=== PATIENT | male | born 1975 | race Caucasian/White ===

== ENCOUNTER 2017-03-29 09:01 | Emergency (ER) | payer OTHER ==
--- NOTE | 2017-03-29 18:01 | EDM.PDOC ---
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 Onset Date: 03/28/17 Location: Reports: Face (left ear) Left Ear Pain Score (Numeric/FACES): 1 Past Medical History - Past Surgical History HEENT Surgical History: Reports: Adenoidectomy, Tonsillectomy Musculoskeletal Surgical History: Reports: Other (See Below) Other Musculoskeletal Surgeries/Procedures:: ACL R Social & Family History - Tobacco Use Smoking Status *Q: Never Smoker - Recreational Drug Use Recreational Drug Use: No ED ROS ENT - Review of Systems Review Of Systems: See Below HEENT: Reports: Other (foreign body in L ear) ED EXAM, ENT - Physical Exam Exam: See Below Exam Limited By: No Limitations General Appearance: Alert, WD/WN, No Apparent Distress Ears: Canal Foreign Body ED ENT PROCEDURES - Additional/Other Procedure(s) Other (Free Text) Procedure(s): Soybean was evident in the pt. L ear canal. The soybean was removed with a fine- tipped suction catheter. Course - Vital Signs Last Recorded V/S: Last Vital Signs Temp 36.9 C 03/29/17 09:10 Pulse 69 03/29/17 09:10 Resp 16 03/29/17 09:10 BP 128/72 03/29/17 09:10 Pulse Ox Departure - Departure Time of Disposition: 09:37 Disposition: Home, Self-Care 01 Condition: Good Clinical Impression: Foreign body in ear - Discharge Information Instructions: Ear Foreign Body, [id number] Referrals: PCP,Unknown [Primary Care Provider] - Forms: ED Department Discharge Additional Instructions: Return to ER if you have any change in your hearing, ear discomfort, or other worrisome signs/symptoms. - Problem List & Annotations (1) Foreign body in ear SNOMED Code(s): 09139266 Code(s): T16.9XXA - FOREIGN BODY IN EAR, UNSPECIFIED EAR, INITIAL ENCOUNTER Status: Acute - Assessment/Plan Assessment:: foreign body left ear
== END 2017-03-29 09:41 | disposition home or self-care (01) ==
LOC: VM.ED 09:01
DX: T16.2XXA Foreign body in left ear, initial encounter (principal); Z98.890 Other specified postprocedural states; X58.XXXA Exposure to other specified factors, initial encounter
CPT/HCPCS: 69200; 99282

== ENCOUNTER 2022-02-26 22:01 | Emergency (ER) | payer OTHER ==
[2022-02-26] MEDS ORDERED: Cephalexin 500 MG Cap ONE ×2 (22:10→23:03)
[2022-02-26] MEDS ORDERED: predniSONE 20 MG Tab ONE (22:10)
[2022-02-26] MEDS ORDERED: Take Home: predniSONE 20 MG, 2 Tab Pack ONE (23:03)
[2022-02-27 08:11] LABS: PTT,PARTIAL THROMBOPLSTIN TIME 25.6 SEC (20.5-30.9)
[2022-02-27 08:20] LABS: ANION GAP 12.2 mmol/L (5-15); CHLORIDE,CL 102 mmol/L (98-107); ESTIMATED GFR 76 mL/min (>=60); SODIUM,NA 139 mmol/L (136-145)
== END 2022-02-26 23:10 | disposition home or self-care (01) ==
LOC: VM.ED 22:01
DX: I77.6 Arteritis, unspecified (principal)
CPT/HCPCS: 36415; 80048; 85025; 85610; 85730; 99283; A9270; J7512

== ENCOUNTER 2023-04-08 22:31 | Emergency (ER) | payer OTHER ==
[2023-04-08] MEDS ORDERED: Amoxicillin 875 MG Tab PO ONE (22:55)
[2023-04-08] MEDS ORDERED: Take Home: Amoxicillin 875 MG Tab, 2 Tab Pack PO ONE (22:59)
== END 2023-04-08 23:07 | disposition home or self-care (01) ==
LOC: VM.ED 22:31
DX: H66.91 Otitis media, unspecified, right ear (principal); Z88.6 Allergy status to analgesic agent
CPT/HCPCS: 99283; A9270

== ENCOUNTER 2024-11-27 11:35 | Emergency (ER) | payer BC, OTHER ==
[2024-11-27 11:50] LABS: BASOPHILS PERCENT AUTO 0.2 % (0.2-1.2); EOSINOPHILS ABSOLUTE AUTO 0.1 x10^3/uL (0.0-0.5); EOSINOPHILS PERCENT AUTO 1.6 % (0.0-4.0); HEMATOCRIT 44.2 % (40.0-52.0); IMMATURE GRAN ABSOLUTE AUTO 0.01 x10^3/uL (0.00-0.07); LYMPHOCYTES ABSOLUTE AUTO 1.5 x10^3/uL (1.0-4.8); LYMPHOCYTES PERCENT AUTO 26.3 % (25.0-50.0); MEAN CORPUSCULAR HGB CONC 33.9 g/dL (32.0-36.0); MEAN CORPUSCULAR VOLUME 85.5 fL (78.0-93.0); MONOCYTES ABSOLUTE AUTO 0.4 x10^3/uL (0.0-0.8); MONOCYTES PERCENT AUTO 6.1 % (2.0-11.0); NEUTROPHILS ABSOLUTE AUTO 3.8 x10^3/uL (1.8-7.7); NEUTROPHILS PERCENT AUTO 65.6 % (50.0-80.0); PLATELET COUNT,PLT 205 x10^3/uL (130-400); RED BLOOD CELL COUNT 5.17 x10^6/uL (4.5-6.0); WHITE BLOOD CELL COUNT,WBC 5.7 x10^3/uL (4.0-10.0)
[2024-11-27 12:11] LABS: A/G RATIO 1.33; ALANINE AMINOTRANSFERASE,ALT 29 U/L (16-63); ALBUMIN 4.4 g/dL (3.4-5.0); ALKALINE PHOSPHATASE 60 U/L (46-116); BILIRUBIN TOTAL 0.7 mg/dL (0.2-1.0); BLOOD UREA NITROGEN,BUN 17 mg/dL (7-18); CALCIUM 9.6 mg/dL (8.5-10.1); CARBON DIOXIDE,CO2 29 mmol/L (21-32); CHLORIDE,CL 103 mmol/L (98-107); CREATININE 1.1 mg/dL (0.70-1.30); GLUCOSE RANDOM 89 mg/dL (70-99); POTASSIUM,K 4.1 mmol/L (3.5-5.1); PROTEIN TOTAL,TP 7.7 g/dL (6.4-8.2); SODIUM,NA 140 mmol/L (136-145)
[2024-11-27 12:13] LABS: LACTIC ACID 0.7 mmol/L (0.4-2.0)
[2024-11-27 12:14] LABS: PROTHROMBIN TIME 10.7 SEC (9.6-12.0); PTT,PARTIAL THROMBOPLSTIN TIME 27.2 SEC (23.5-33.2)
[2024-11-27 12:16] LABS: ANION GAP 12.1 mmol/L (5-15); ESTIMATED GFR 83 mL/min (>=60); ETHANOL BLOOD MEDICAL < 3 mg/dL (0-3)
[2024-11-27 12:20] LABS: ASPARTATE AMNIOTRANSFERASE,AST 26 U/L (15-37)
[2024-11-27 12:55] LABS: APPEARANCE,URINE CLEAR (CLEAR); BILIRUBIN,URINE NEGATIVE (NEGATIVE); COLOR,URINE YELLOW (YELLOW); GLUCOSE,URINE NEGATIVE (NEGATIVE); KETONES,URINE NEGATIVE (NEGATIVE); LEUKOCYTE ESTERASE,URINE NEGATIVE (NEGATIVE); NITRITE,URINE NEGATIVE (NEGATIVE); OCCULT BLOOD,URINE NEGATIVE (NEGATIVE); PROTEIN,URINE NEGATIVE (NEGATIVE); UROBILINOGEN,URINE 0.2 EU/dL (0.2)
[2024-11-27 12:58] LABS: AMPHETAMINES SCREEN, URINE NEGATIVE (NEGATIVE); BARBITURATE SCREEN,URINE NEGATIVE (NEGATIVE); BENZODIAZEPINES SCREEN,URINE NEGATIVE (NEGATIVE); BUPRENORPHINE SCREEN,URINE NEGATIVE (NEGATIVE); COCAINE METABOLITES,URINE NEGATIVE (NEGATIVE); METHADONE SCREEN, URINE NEGATIVE (NEGATIVE); METHAMPHETAMINE SCREEN, URINE NEGATIVE (NEGATIVE); OXYCODONE SCREEN,URINE NEGATIVE (NEGATIVE); PCP SCREEN,URINE NEGATIVE (NEGATIVE); THC SCREEN,URINE 50 NG/ML NEGATIVE (NEGATIVE)
== END 2024-11-27 13:16 | disposition home or self-care (01) ==
LOC: VM.ED 11:35
DX: R53.83 Other fatigue (principal); Z88.8 Allergy status to other drugs, medicaments and biological substances
CPT/HCPCS: 70450; 80053; 80305-QW; 80307; 81003; 82140; 83605; 85025; 85610; 85730; 93005; 93010; 99284